=== PATIENT | female | born 1980 | race Caucasian/White ===

== ENCOUNTER 2019-02-27 20:47 | Emergency (ER) | payer OTHER ==
[~2019-02-27] VITALS: Ht 152.4 cm; Wt 90.9 kg
[2019-02-27 22:01] VITALS: BP 138/67
[2019-02-27] MEDS ORDERED: IBUPROFEN 600 MG TABLET PO ONE (23:00)
== END 2019-02-27 23:31 | disposition home or self-care (01) ==
LOC: EMS 20:52
DX: M54.6 Pain in thoracic spine (principal); J45.909 Unspecified asthma, uncomplicated; Z88.2 Allergy status to sulfonamides; V49.9XXA Car occupant (driver) (passenger) injured in unspecified traffic accident, initial encounter; Y93.89 Activity, other specified; Y92.89 Other specified places as the place of occurrence of the external cause; Y99.8 Other external cause status

== ENCOUNTER 2021-05-15 15:53 | Emergency (ER) | payer OTHER ==
[~2021-05-15] VITALS: Ht 152.4 cm; Wt 86.4 kg
[2021-05-15 16:05] VITALS: BP 115/74
[2021-05-15] MEDS ORDERED: BECLOMETHASONE DIPR HFA 80 MCG/PUFF 10.6 GM INHALER IH ONE (16:45)
[2021-05-15] MEDS ORDERED: ALBUTEROL SULFATE HFA 90 MCG/PUFF 8 GM INHALER IH ONE (16:45)
[2021-05-15] MEDS ORDERED: PredniSONE 20 MG TABLET PO ONE (16:45)
== END 2021-05-15 17:49 | disposition home or self-care (01) ==
LOC: EMS 16:07
DX: J45.909 Unspecified asthma, uncomplicated (principal); Z76.0 Encounter for issue of repeat prescription; Z88.2 Allergy status to sulfonamides
CPT/HCPCS: 94640; 99283; J7512; J3535